=== PATIENT | female | born 1960 ===

== ENCOUNTER 2018-09-14 21:46 | Emergency (ER) | payer SELFPAY ==
[2018-09-14 21:54] VITALS: PULSE 68; RESP 18
--- NOTE | 2018-09-14 22:30 | ED PDOC ---
HPI: General Adult Time Seen by Provider: 09/14/18 22:04 Chief Complaint (Nursing): ENT Problem Chief Complaint (Provider): neck and shoulder pain History Per: Patient, Family Additional Complaint(s): 58 y/o Female with hx of HL (diet controlled) who presents with Right shoulder pain for the past several months. Pt states that she is visiting from [place]. She has been having Right shoulder burning down her left arm for approximately 1 year, which comes and goes. She began having recurrence about 4 days ago. She states that she also occasionally has left neck pain that causes her to cough. Denies fever, chills, night sweats, N/V, diarrhea, body aches, sore throat, ear pain. Pt states throat pain but when clarified in Hungarian she denies sore throat but reiterates that it is neck pain. Further denies SOB or chest pain. She has not taken anything for the pain. Denies trauma or fall. Past Medical History Reviewed: Historical Data, Nursing Documentation, Vital Signs Vital Signs: Last Vital Signs Temp 98.8 F 09/14/18 21:52 Pulse 68 09/14/18 21:52 Resp 18 09/14/18 21:52 BP 187/99 H 09/14/18 21:52 Pulse Ox 99 09/14/18 21:52 - Medical History PMH: Hyperlipidemia (diet controlled) Denies: HTN - Family History Family History: States: Unknown Family Hx - Home Medications Home Medications: Ambulatory Orders Medication Instructions Recorded Cyclobenzaprine [Cyclobenzaprine 10 mg PO Q8 PRN 7 Days tab 09/14/18 HCl] Ibuprofen [Motrin Tab] 800 mg PO Q6 PRN 7 Days tab 09/14/18 - Allergies Allergies/Adverse Reactions: Allergies Allergy/AdvReac Type Severity Reaction Status Date / Time No Known Allergies Allergy Verified 09/14/18 22:17 Review of Systems Cardiovascular: Negative for: Chest Pain Respiratory: Positive for: Cough (intermittent with neck pain). Negative for: Shortness of Breath Musculoskeletal: Positive for: Neck Pain Neurological: Negative for: Weakness Physical Exam - Reviewed Nursing Documentation Reviewed: Yes Vital Signs Reviewed: Yes - Physical Exam Appears: Positive for: Non-toxic Skin: Positive for: Normal Color Eye Exam: Positive for: Normal appearance ENT: Positive for: Normal ENT Inspection Neck: Positive for: Normal Cardiovascular/Chest: Positive for: Regular Rate, Rhythm Respiratory: Positive for: Normal Breath Sounds Pulses-Radial (R): 2+ Back: Positive for: Normal Inspection. Negative for: Vertebral Tenderness, Decreased ROM, Muscle Spasm Extremity: Positive for: Normal ROM (Right shoulder with normal flexion/extens ion/abduction, mild tenderness on palpation of Right shoulder, no point tenderness. ) Neurologic/Psych: Positive for: Alert, Oriented - ECG O2 Sat by Pulse Oximetry: 99 Medical Decision Making Medical Decision Making: Toradol 30mg IM x 1 23:20: Re-evaluated. Pain has improved. Stable for d/c home. Disposition - Clinical Impression Clinical Impression: Musculoskeletal pain - Patient ED Disposition Is Patient to be Admitted: No - Disposition Referrals: [facility] [Outside] Disposition: Routine/Home Disposition Time: 23:42 Condition: STABLE Additional Instructions: Take Ibuprofen and Flexeril for pain. Return to ER if your pain is unbearable despite using medications. Prescriptions: Cyclobenzaprine [Cyclobenzaprine HCl] 10 mg PO Q8 PRN 7 Days tab PRN Reason: Pain, Moderate (4-7) Ibuprofen [Motrin Tab] 800 mg PO Q6 PRN 7 Days tab PRN Reason: Pain, Moderate (4-7) Forms: [employer] (Hungarian) Print Language: [email or web address]
[2018-09-14 23:48] VITALS: BP 143/81; TEMP 98.2; O2SAT 97
== END 2018-09-14 23:49 | disposition home or self-care (01) ==
LOC: H.ER 21:46
DX: M54.2 Cervicalgia (principal); M25.511 Pain in right shoulder
CPT/HCPCS: 96372; 99283; J1885